=== PATIENT | male | born 1945 | race Caucasian/White ===

== ENCOUNTER 2017-05-17 07:19 | Day surgery (SDC) | payer MEDICARE, BC ==
[~2017-05-17 07:19] MED LIST: Midazolam 1 MG/ML 2 ML SDV ONE; Propofol 200 MG/20 ML SDV ONE; fentaNYL 100 MCG/2 ML SDV ONE
[2017-05-17] MEDS ORDERED: Lactated Ringers 1,000 ML IV SCH (07:45)
[2017-05-17] MEDS ORDERED: Glycopyrrolate 0.2 MG/ML 2 ML SDV IVPUSH ONE (08:30)
[2017-05-17] MEDS ORDERED: Pantoprazole 40 MG Vial IVPUSH ONE (09:50)
[2017-05-17 10:50] VITALS: BP 148/96
--- NOTE | 2017-05-18 15:49 | OR ---
DATE OF PROCEDURE: 05/17/2017 PREOPERATIVE DIAGNOSIS: Epigastric pain. POSTOPERATIVE DIAGNOSIS: Epigastric pain associated with mild antral gastritis. OPERATIVE PROCEDURE: Upper GI endoscopy with: 1. Biopsies of antrum for histologic evaluation. 2. Biopsies of antrum for CLOtest. ANESTHESIA: IV sedation. INDICATIONS FOR PROCEDURE: A 71-year-old presenting with some increasing epigastric discomfort. He presently has been on omeprazole 20 mg a day for the most part. He has recently taken it somewhat sporadically twice a day. He does have history of previous gastritis and H. pylori infection. Plan is to proceed with the upper GI endoscopy with biopsies as indicated. Potential risks including bleeding and perforation were discussed, and the patient wishes to proceed. DETAILS OF PROCEDURE: The patient was taken to the operating room and placed in a left lateral decubitus position. IV sedation was administered after which the upper GI endoscope was passed orally through the length of the esophagus into the stomach with retroflexion view of the fundus, and thereafter through the pyloric channel into the proximal duodenum. Findings included normal hypopharynx, larynx, upper esophageal sphincter, and esophageal body at the EG junction. No significant hiatal hernia was present. There was no gross inflammation. There was no upward extension of the gastroesophageal junction mucosal line above the upper gastric fold. Within the stomach, there was some mild patchy redness consistent with some gastritis in the antrum and particularly in the prepyloric area. Photo documentation was obtained. Pyloric channel and duodenum at the junction of the 3rd and 4th portions were unremarkable. At this point, biopsies were obtained for both the CLOtest and histologic evaluation of the antrum and minimal bleeding from the biopsy sites was seen. The procedure was then concluded. The patient was taken to the recovery room in satisfactory condition. Plan will be to switch the patient over from Prilosec to Protonix 40 mg a day and we will await the results regarding the H. pylori testing. Brenden Gonzales MD /[id number]
== END 2017-05-17 10:51 | disposition home or self-care (01) ==
LOC: JP.SDS 07:19
PROVIDERS: ATTEND Surgery
DX: K29.50 Unspecified chronic gastritis without bleeding (principal); I25.10 Atherosclerotic heart disease of native coronary artery without angina pectoris; I10 Essential (primary) hypertension; K21.9 Gastro-esophageal reflux disease without esophagitis; E11.9 Type 2 diabetes mellitus without complications; E78.00 Pure hypercholesterolemia, unspecified; I25.2 Old myocardial infarction; Z95.5 Presence of coronary angioplasty implant and graft; Z88.8 Allergy status to other drugs, medicaments and biological substances; Z98.890 Other specified postprocedural states
CPT/HCPCS: 43239; 87081; C9113; J2250; J2704; J3010; J7120; 88305; 88342; J3490

== ENCOUNTER 2020-12-20 08:01 | Day surgery (SDC) | payer MEDICARE, BC ==
[2020-12-20] MEDS ORDERED: Dextrose 5%-Lactated Ringers 1,000 ML IV SCH (08:30)
[2020-12-20 11:36] VITALS: BP 102/59; PULSE 75
--- NOTE | 2020-12-29 13:00 | OR ---
DATE OF PROCEDURE: 12/20/2020 SURGEON: Brenden Gonzales MD PREOPERATIVE DIAGNOSIS: Indication for screening colonoscopy. POSTOPERATIVE DIAGNOSIS: Minimal left colonic diverticulosis. OPERATIVE PROCEDURE: Flexible colonoscopy. ANESTHESIA: IV sedation. INDICATIONS FOR PROCEDURE: A 75-year-old male presenting with indication for screening colonoscopy. He has had no personal or family history of colon carcinoma or neoplasia. Plan is to proceed with colonoscopy with biopsies and/or polypectomy as indicated. Potential risks of the procedure including bleeding and perforation were discussed, and the patient wishes to proceed. DESCRIPTION OF PROCEDURE: The patient was taken to the operating room and placed in a left lateral decubitus position. IV sedation was administered after which initial digital rectal exam was performed and was unremarkable. Colonoscope was then passed to the level of the rectum with retroflexion revealing uncomplicated hemorrhoidal columns. Scope was then eventually passed to the level of the cecum. The prep was quite good. Only a small amount of liquid stool was present. The patient had some scattered left colonic diverticulosis which was otherwise uncomplicated. Otherwise, there were no areas of colitis. No polyps or other signs of neoplasia. Scope was then withdrawn, the above findings reconfirmed, and the procedure then concluded. The patient was taken to the recovery room in satisfactory condition. A followup colonoscopy could be considered in 10 years if the patient's health status at that point remains good. Otherwise, it would be on a p.r.n. basis. Brenden Gonzales MD /[id number]
== END 2020-12-20 11:40 | disposition home or self-care (01) ==
LOC: JP.SDS 08:01
PROVIDERS: ATTEND Surgery
DX: Z12.11 Encounter for screening for malignant neoplasm of colon (principal); K57.30 Diverticulosis of large intestine without perforation or abscess without bleeding; I10 Essential (primary) hypertension; I25.10 Atherosclerotic heart disease of native coronary artery without angina pectoris; E78.5 Hyperlipidemia, unspecified; Z88.8 Allergy status to other drugs, medicaments and biological substances
CPT/HCPCS: G0121; J2250; J2704; J3010; J7121

== ENCOUNTER 2025-04-23 16:23 | Emergency (ER) | payer MEDICARE, BC ==
[2025-04-23 16:54] LABS: BASOPHILS ABSOLUTE AUTO 0.02 K/uL (0.00-0.10); BASOPHILS PERCENT AUTO 0.2 % (0.1-1.3); EOSINOPHILS ABSOLUTE AUTO 0.04 K/uL (0.00-0.40); EOSINOPHILS PERCENT AUTO 0.4 % (0.0-5.4); IMMATURE GRAN ABSOLUTE AUTO 0.09 K/uL (0.00-0.23); IMMATURE GRAN PERCENT AUTO 1.0 % (0.0-0.7); LYMPHOCYTES ABSOLUTE AUTO 1.92 K/uL (0.8-3.3); LYMPHOCYTES PERCENT AUTO 21.4 % (11.4-47.7); MONOCYTES ABSOLUTE AUTO 0.75 K/uL (0.20-0.90); MONOCYTES PERCENT AUTO 8.3 % (3.3-12.6); NEUTROPHILS ABSOLUTE AUTO 6.17 K/uL (1.0-7.6); NEUTROPHILS PERCENT AUTO 68.7 % (40.0-78.1); PLATELET COUNT,PLT 187 K/uL (130-375); RED BLOOD CELL COUNT 4.34 M/uL (4.14-5.76); WHITE BLOOD CELL COUNT,WBC 9.0 K/uL (3.2-11.0)
[2025-04-23 17:16] LABS: A/G RATIO 0.9 (1.2-2.2); ALANINE AMINOTRANSFERASE,ALT 23 U/L (12-78); ASPARTATE AMNIOTRANSFERASE,AST 20 U/L (15-37); BILIRUBIN TOTAL 0.7 mg/dL (0.2-1.0); BLOOD UREA NITROGEN,BUN 19 mg/dL (7-18); CARBON DIOXIDE,CO2 22 mmol/L (21-32); CHLORIDE,CL 104 mmol/L (100-108); CREATININE 1.2 mg/dL (0.8-1.3); EST CRCL DRUG DOSING (CG) 45.04 mL/min; ESTIMATED GFR 62 mL/min (>60); GLUCOSE RANDOM 145 mg/dL (74-106); POTASSIUM,K 4.1 mmol/L (3.6-5.2); PROTEIN TOTAL,TP 7.3 g/dL (6.4-8.2); SODIUM,NA 136 mmol/L (140-148); TROPONIN I HIGH SENSITIVITY 5.1 pg/mL (<=60.3)
[2025-04-23 17:23] VITALS: BP 129/86; PULSE 80
== END 2025-04-23 18:03 | disposition home or self-care (01) ==
LOC: JP.ED 16:23
DX: R07.89 Other chest pain (principal); I10 Essential (primary) hypertension; I25.2 Old myocardial infarction; E78.00 Pure hypercholesterolemia, unspecified; K21.9 Gastro-esophageal reflux disease without esophagitis; E11.9 Type 2 diabetes mellitus without complications; Z88.8 Allergy status to other drugs, medicaments and biological substances; Z79.82 Long term (current) use of aspirin; Z79.899 Other long term (current) drug therapy
CPT/HCPCS: 36415; 71045; 71045-26; 80053; 84484; 85025; 93005; 99284